=== PATIENT | female | born 1970 | race Caucasian/White ===

== ENCOUNTER 2022-03-22 17:03 | Emergency (ER) | payer OTHER ==
[~2022-03-22] VITALS: Ht 172.7 cm; Wt 70.3 kg
[2022-03-22] MEDS: MORPHINE 4 MG SYG IVP ONE (18:29)
[2022-03-22] MEDS: 0.9% NACL 500ML IV.SOLN 500 ML IV ONE (18:29)
[2022-03-22] MEDS: ONDANSETRON 4MG INJ IVP ONE (18:29)
[2022-03-22] MEDS ORDERED: NAPR500T6 PO (18:46)
[2022-03-22 19:34] VITALS: BP 128/77
== END 2022-03-22 19:43 | disposition home or self-care (01) ==
LOC: EDH 17:03
DX: S52.591A Other fractures of lower end of right radius, initial encounter for closed fracture (principal); K21.9 Gastro-esophageal reflux disease without esophagitis; Z79.1 Long term (current) use of non-steroidal anti-inflammatories (NSAID); W18.39XA Other fall on same level, initial encounter; Y93.89 Activity, other specified; Y92.89 Other specified places as the place of occurrence of the external cause; Y99.8 Other external cause status
CPT/HCPCS: 25605; 99285; 73110 ×2; 96374; 96375; J7040; J2405; J2270